=== PATIENT | male | born 1940 | race Caucasian/White ===

== ENCOUNTER 2016-11-17 07:57 | Inpatient (IN) | payer OTHER ==
[2016-11-17] VITALS (12 sets, daily range): BP systolic 74–151; BP diastolic 58–81
[~2016-11-17] VITALS: Ht 172.7 cm; Wt 56.6 kg
[~2016-11-17 07:57] MED LIST: ALBU8.5H IH; ASPI-1093 PO; ATOR20TA86 PO; D-ME118S13 PO; INSLAN SQ; INSNOV SQ; LOSA50TA37 PO; METF500T4 PO; METO100XL PO; MONT10TA21 PO; OMEP20 PO; PRED10 PO
[2016-11-17] MEDS ORDERED: ETOMIDATE 2 MG/ML 10 ML VIAL IVP ONE (08:15)
[2016-11-17] MEDS ORDERED: SUCCINYLCHOLINE CHLORIDE 20 MG/ML 10 ML VIAL IVP ONE (08:15)
[2016-11-17] MEDS ORDERED: CARV3 PO (08:17)
[2016-11-17] MEDS ORDERED: ADV100 IH (08:17)
[2016-11-17] MEDS ORDERED: BUME1TAB30 PO (08:17)
[2016-11-17] MEDS ORDERED: LISI-660 PO (08:17)
[2016-11-17] MEDS ORDERED: GABA-529 PO (08:17)
[2016-11-17] MEDS ORDERED: FAMO20 PO (08:17)
[2016-11-17] MEDS ORDERED: KDUR20 PO (08:17)
[2016-11-17 08:21] LABS: BASOPHILS # (AUTO) 0.04 K/uL (0.00-0.20); BASOPHILS % (AUTO) 0.3 % (0.0-2.0); EOSINOPHILS # (AUTO) 0.08 K/uL (0.00-0.70); EOSINOPHILS % (AUTO) 0.47 % (1.0-6.0); HEMATOCRIT 43.7 % (41-53); LYMPHOCYTES # (AUTO) 2.4 K/uL (1.0-4.8); LYMPHOCYTES % (AUTO) 14.1 % (22.0-44.0); MEAN CORPUSCULAR HEMOGLOBIN 29.1 pg (26.0-34.0); MEAN CORPUSCULAR HGB CONC 32.1 G/dL (31.0-37.0); MEAN CORPUSCULAR VOLUME 91 fL (80-100); MONOCYTES # (AUTO) 0.4 K/uL (0.1-1.0); MONOCYTES % (AUTO) 2.5 % (2.0-9.0); NEUTROPHILS # (AUTO) 13.8 K/uL (1.8-7.7); NEUTROPHILS % (AUTO) 82.6 % (40.0-70.0); PLATELET COUNT (AUTO) 487 K/uL (150-450); RED BLOOD CELL COUNT(AUTO) 4.82 MIL/uL (4.50-5.90); RED CELL DISTRIBUTION WIDTH 15.9 % (11.5-14.5); WHITE BLOOD COUNT (AUTO) 16.7 K/uL (4.5-11.0)
[2016-11-17 08:28] LABS: INR 1.1 (0.9-1.1); PROTHROMBIN TIME 11.3 SEC (9.4-11.6)
[2016-11-17 08:29] LABS: ANION GAP 27 mmol/L (8-16); CALCIUM, TOTAL 8.7 mg/dL (8.8-10.5); CARBON DIOXIDE 15 mmol/L (22-29); CHLORIDE 101 mmol/L (98-107); GLOMERULAR FILTR. RATE CALC 46 mL/min (>60); POTASSIUM 4.7 mmol/L (3.5-5.1); SODIUM SERUM 143 mmol/L (136-145); UREA NITROGEN, BLOOD 40 mg/dL (7-18)
[2016-11-17 08:36] LABS: ALANINE AMINOTRANSFERASE 56 U/L (12-78); ALBUMIN 2.7 g/dL (3.4-5.0); ASPARTATE AMINOTRANSFERASE 36 U/L (15-37); BILIRUBIN,TOTAL 0.4 mg/dL (0.1-1.0); CREATINE KINASE, TOTAL 73 U/L (39-308); TOTAL PROTEIN, SERUM 6.4 g/dL (6.4-8.2)
[2016-11-17 08:40] LABS: B-TYPE NATRIURETIC PEPTIDE 553 pg/mL (0-100)
[2016-11-17 08:41] LABS: ABG A-A DIFF O2 233.1 mmHg (10-20.0); ABG BASE EXCESS -14.6 mmol/L (-2.0-3.0); ABG HCO3 14.1 mmol/L (22.0-26.0); ABG PCO2 34 mmHg (35-45); TEMPERATURE, FAHRENHEIT, BG 94.9 FAHREN (96.0-98.6)
[2016-11-17 08:42] LABS: ALLEN TEST, BLOOD GAS POSITIVE
[2016-11-17 08:43] LABS: ADD UA MICROSCOPIC NO; APPEARANCE,URINE CLEAR (CLEAR); GLUCOSE, URINE (UA) NEGATIVE (NEGATIVE); KETONES,URINE NEGATIVE (NEGATIVE); LEUKOCYTE ESTERASE ,URINE NEGATIVE (NEGATIVE); OCCULT BLOOD,URINE NEGATIVE (NEGATIVE); PH,URINE 6.5 (5.0-8.0); PROTEIN,URINE NEGATIVE (NEGATIVE)
[2016-11-17] MEDS ORDERED: HEPARIN SODIUM 25000 UNITS/D5W 250 ML IV PRN (09:00)
[2016-11-17] MEDS ORDERED: HEPARIN SODIUM,PORCINE 5,000 UNITS/ML VIAL IVP ONE (09:00)
[2016-11-17] MEDS ORDERED: HEPARIN SODIUM,PORCINE 5,000 UNITS/ML VIAL IVP PRN ×2 (09:00)
[2016-11-17] MEDS: PROPOFOL 1000 MG/ISO-OSM 100 ML IV PRN ×3 (09:16→20:42)
[2016-11-17] MEDS ORDERED: TICA90TA PO (09:27)
[2016-11-17] MEDS ORDERED: ETOMIDATE 2 MG/ML 10 ML VIAL IV ONE (10:00)
[2016-11-17] MEDS ORDERED: SUCCINYLCHOLINE CHLORIDE 20 MG/ML 10 ML VIAL IV ONE (10:00)
[2016-11-17] MEDS ORDERED: SODIUM BICARBONATE [ADULT] 8.4% 50 MEQ/50 ML SYRINGE IVP ONE ×2 (10:52→11:00)
[2016-11-17] MEDS ORDERED: SODIUM BICARBONATE 100 MEQ in DEXTROSE 5%-WATER 1,000 ML IV SCH (11:00)
[2016-11-17] MEDS ORDERED: LIDOCAINE HCL/PF 1% 30 ML VIAL ONE ×2 (11:04→14:16)
[2016-11-17] MEDS ORDERED: HEPARIN SODIUM 1000 UNITS/NS 1,000 ML ONE ×2 (11:05→14:16)
[2016-11-17] MEDS ORDERED: SODIUM BICARBONATE 50 MEQ/50 ML VIAL ONE ×2 (11:05→14:16)
[2016-11-17] MEDS ORDERED: IOHEXOL 300 MG/ML 150 ML VIAL ONE ×2 (11:05→14:16)
[2016-11-17] MEDS ORDERED: VERAPAMIL HCL 2.5 MG/ML 2 ML VIAL ONE ×2 (11:06→14:15)
[2016-11-17] MEDS ORDERED: NITROGLYCERIN 50 MG/D5% WATER 250 ML ONE (11:06)
[2016-11-17] MEDS ORDERED: 0.9% SODIUM CHLORIDE 10 ML SYRINGE IVP ONE (11:07)
[2016-11-17] MEDS ORDERED: MIDAZOLAM HCL 2 MG/2 ML VIAL ONE ×2 (11:08→14:15)
[2016-11-17] MEDS ORDERED: FentaNYL CITRATE-PF 100 MCG/2 ML VIAL ONE ×3 (11:08→14:15)
[2016-11-17] MEDS ORDERED: SODIUM CHLORIDE 0.9% 500 ML IV ONE (11:56)
[2016-11-17] MEDS ORDERED: HEPARIN SODIUM 1000 UNITS/NS 1,000 ML IARTER ONE (12:00)
[2016-11-17] MEDS ORDERED: LIDOCAINE 1% 30 ML/SOD BICARB 8.4% 4 ML SQ ONE (12:00)
[2016-11-17] MEDS ORDERED: IOHEXOL 300 MG/ML 150 ML VIAL IARTER ONE (12:04)
[2016-11-17] MEDS: ASPIRIN 81 MG CHEWABLE TABLET PO SCH (15:53)
[2016-11-17] MEDS ORDERED: 0.9% SODIUM CHLORIDE 10 ML SYRINGE IVP PRN (17:00)
[2016-11-17] MEDS ORDERED: BARIUM SULFATE 0.1% SUSPENSION 450 ML BOTTLE ONE (17:33)
[2016-11-17 18:25] LABS: LACTIC ACID 0.9 mmol/L (0.4-2.0)
[2016-11-17 18:42] LABS: ANION GAP 5 mmol/L (8-16); CALCIUM, TOTAL 7.8 mg/dL (8.8-10.5); CARBON DIOXIDE 39 mmol/L (22-29); CHLORIDE 103 mmol/L (98-107); CREATININE 0.95 mg/dL (0.60-1.30); GLOMERULAR FILTR. RATE CALC > 60 mL/min (>60); SODIUM SERUM 147 mmol/L (136-145); UREA NITROGEN, BLOOD 35 mg/dL (7-18)
[2016-11-17] MEDS ORDERED: DEXTROSE 50%-WATER 25 GM/50 ML SYRINGE IVP ONE ×2 (18:51→21:58)
[2016-11-17 18:52] LABS: POTASSIUM 2.8 mmol/L (3.5-5.1)
[2016-11-17 19:25] LABS: ABG A-A DIFF O2 171.9 mmHg (10-20.0); ABG BASE EXCESS 4.2 mmol/L (-2.0-3.0); ABG HCO3 28.1 mmol/L (22.0-26.0); ABG OXYHEMOGLOBIN 97.9 % (94.0-100.0); ABG PCO2 38 mmHg (35-45); ABG PH 7.477 (7.35-7.450); TEMPERATURE, FAHRENHEIT, BG 97.5 FAHREN (96.0-98.6)
[2016-11-17 19:26] LABS: ALLEN TEST, BLOOD GAS Positive
[2016-11-17 19:37] LABS: PROCALCITONIN (PCT) 0.06 ng/mL (<0.50)
[2016-11-17] MEDS ORDERED: POTASSIUM CHL 10 MEQ/WATER 50 ML IV SCH (19:45)
[2016-11-17] MEDS ORDERED: SODIUM CHLORIDE 0.9% 250 ML IV ONE (19:54)
[2016-11-17] MEDS: POTASSIUM CHL 10 MEQ/WATER 50 ML IV SCH ×6 (20:05→23:37)
[2016-11-17] MEDS: POTASSIUM CHL 20 MEQ/D5-0.45NS 1,000 ML IV SCH (20:48)
[2016-11-17] MEDS: TICAGRELOR 90 MG TABLET PO SCH (21:09)
[2016-11-17] MEDS ORDERED: DEXTROSE 10%-WATER 1,000 ML IV SCH (22:15)
[2016-11-17] MEDS: DEXTROSE 50%-WATER 25 GM/50 ML SYRINGE IVP PRN (22:33)
[2016-11-18] VITALS (9 sets, daily range): BP systolic 109–168; BP diastolic 70–94
[2016-11-18 01:36] LABS: ANION GAP 5 mmol/L (8-16); CALCIUM, TOTAL 7.7 mg/dL (8.8-10.5); CARBON DIOXIDE 35 mmol/L (22-29); CHLORIDE 100 mmol/L (98-107); CREATININE 0.93 mg/dL (0.60-1.30); GLOMERULAR FILTR. RATE CALC > 60 mL/min (>60); POTASSIUM 3.6 mmol/L (3.5-5.1); SODIUM SERUM 140 mmol/L (136-145); UREA NITROGEN, BLOOD 25 mg/dL (7-18)
[2016-11-18 01:37] LABS: SALICYLATE < 2.8 mg/dL (2.8-20.0)
[2016-11-18] MEDS: DEXTROSE 50%-WATER 25 GM/50 ML SYRINGE IVP PRN (01:52)
[2016-11-18] MEDS: PROPOFOL 1000 MG/ISO-OSM 100 ML IV PRN ×2 (01:52→07:39)
[2016-11-18 01:55] LABS: OSMOLALITY 281 mOS/kg (270-310)
[2016-11-18] MEDS: CefTRIAXone 1 GM/DEXTROSE 50 ML IV SCH (02:52)
[2016-11-18 07:08] LABS: BASOPHILS % (AUTO) 0.2 % (0.0-2.0); EOSINOPHILS % (AUTO) 0.3 % (1.0-6.0); HEMATOCRIT 38.1 % (41-53); HEMOGLOBIN 12.3 g/dL (13.5-17.5); LYMPHOCYTES % (AUTO) 9.2 % (22.0-44.0); MEAN CORPUSCULAR HEMOGLOBIN 28.7 pg (26.0-34.0); MEAN CORPUSCULAR HGB CONC 32.3 G/dL (31.0-37.0); MEAN CORPUSCULAR VOLUME 89 fL (80-100); MONOCYTES # (AUTO) 1.1 K/uL (0.1-1.0); MONOCYTES % (AUTO) 4.9 % (2.0-9.0); NEUTROPHILS # (AUTO) 18.3 K/uL (1.8-7.7); PLATELET COUNT (AUTO) 340 K/uL (150-450); RED BLOOD CELL COUNT(AUTO) 4.28 MIL/uL (4.50-5.90); RED CELL DISTRIBUTION WIDTH 16.1 % (11.5-14.5); WHITE BLOOD COUNT (AUTO) 21.4 K/uL (4.5-11.0)
[2016-11-18 07:25] LABS: ANION GAP 8 mmol/L (8-16); CALCIUM, TOTAL 7.5 mg/dL (8.8-10.5); CARBON DIOXIDE 30 mmol/L (22-29); CHLORIDE 99 mmol/L (98-107); CREATININE 0.61 mg/dL (0.60-1.30); GLOMERULAR FILTR. RATE CALC > 60 mL/min (>60); POTASSIUM 3.1 mmol/L (3.5-5.1); SODIUM SERUM 137 mmol/L (136-145); UREA NITROGEN, BLOOD 17 mg/dL (7-18)
[2016-11-18 07:36] LABS: NEUTROPHILS % (AUTO) 85.4 % (40.0-70.0)
[2016-11-18] MEDS: TICAGRELOR 90 MG TABLET PO SCH ×2 (08:31→21:34)
[2016-11-18] MEDS: ASPIRIN 81 MG CHEWABLE TABLET PO SCH (08:31)
[2016-11-18] MEDS: POTASSIUM CHL 10 MEQ/WATER 50 ML IV SCH ×4 (09:14→12:46)
[2016-11-18] MEDS ORDERED: MAGNESIUM HYDROXIDE SUSPENSION 30 ML UDCUP PO PRN (09:15)
[2016-11-18] MEDS ORDERED: BISACODYL 10 MG RECTAL RECTAL SUPPOSITORY PR PRN (09:15)
[2016-11-18] MEDS ORDERED: ALBUTEROL SULFATE 2.5 MG/0.5 ML NEB SOLUTION NEB PRN (09:15)
[2016-11-18] MEDS ORDERED: ZOLPIDEM TARTRATE 5 MG TABLET PO PRN (09:15)
[2016-11-18] MEDS ORDERED: ONDANSETRON HCL 4 MG/2 ML VIAL IVP PRN (09:15)
[2016-11-18] MEDS ORDERED: ACETAMINOPHEN 325 MG TABLET PO PRN (09:15)
[2016-11-18] MEDS ORDERED: IPRATROPIUM BROMIDE 0.5 MG/2.5 ML NEB SOLUTION NEB PRN (09:15)
[2016-11-18] MEDS ORDERED: POTASSIUM CHLORIDE 10% 40 MEQ/30 ML LIQUID UDCUP NG ONE (09:30)
[2016-11-18] MEDS ORDERED: POTASSIUM CHL 20 MEQ/D5-0.45NS 1,000 ML IV SCH (09:30)
[2016-11-18] MEDS: POTASSIUM CHL 20 MEQ/D5-0.45NS 1,000 ML IV SCH ×2 (09:47→21:35)
[2016-11-18] MEDS: THIAMINE HCL 100 MG/ML 2ML VIAL IVP SCH (12:49)
[2016-11-18 16:16] LABS: ANION GAP 5 mmol/L (8-16); CALCIUM, TOTAL 6.9 mg/dL (8.8-10.5); CARBON DIOXIDE 27 mmol/L (22-29); CHLORIDE 99 mmol/L (98-107); CREATININE 0.69 mg/dL (0.60-1.30); GLOMERULAR FILTR. RATE CALC > 60 mL/min (>60); POTASSIUM 4.4 mmol/L (3.5-5.1); SODIUM SERUM 131 mmol/L (136-145); UREA NITROGEN, BLOOD 13 mg/dL (7-18)
[2016-11-18] MEDS: HEPARIN SODIUM,PORCINE 5,000 UNITS/ML VIAL SQ SCH (16:20)
[2016-11-18] MEDS: DOCUSATE SODIUM 100 MG CAPSULE PO SCH (21:34)
[2016-11-19] VITALS (11 sets, daily range): BP systolic 115–158; BP diastolic 64–104
[2016-11-19] MEDS: HEPARIN SODIUM,PORCINE 5,000 UNITS/ML VIAL SQ SCH ×4 (01:07→23:27)
[2016-11-19 01:29] LABS: GLUCOSE,POINT OF CARE 70 MG/DL (70-110)
[2016-11-19 01:35] LABS: GLUCOSE COMMENT 1 Doctor Notified; GLUCOSE,POINT OF CARE 14 MG/DL (70-110)
[2016-11-19 01:35] LABS: GLUCOSE,POINT OF CARE 122 MG/DL (70-110)
[2016-11-19 01:35] LABS: GLUCOSE,POINT OF CARE 105 MG/DL (70-110)
[2016-11-19 01:35] LABS: GLUCOSE,POINT OF CARE 74 MG/DL (70-110)
[2016-11-19 01:39] LABS: GLUCOSE,POINT OF CARE 70 MG/DL (70-110)
[2016-11-19 01:44] LABS: GLUCOSE,POINT OF CARE 160 MG/DL (70-110)
[2016-11-19 02:17] LABS: GLUCOSE,POINT OF CARE 185 MG/DL (70-110)
[2016-11-19] MEDS ORDERED: SODIUM CHLORIDE 0.9% 250 ML IV ONE (03:53)
[2016-11-19] MEDS: CefTRIAXone 1 GM/DEXTROSE 50 ML IV SCH (03:55)
[2016-11-19] MEDS: PROPOFOL 1000 MG/ISO-OSM 100 ML IV PRN ×2 (06:09→19:52)
[2016-11-19 06:45] LABS: EOSINOPHILS # (AUTO) 0.22 K/uL (0.00-0.70); EOSINOPHILS % (AUTO) 1.44 % (1.0-6.0); HEMATOCRIT 34.8 % (41-53); HEMOGLOBIN 11.5 g/dL (13.5-17.5); LYMPHOCYTES # (AUTO) 1.2 K/uL (1.0-4.8); LYMPHOCYTES % (AUTO) 7.9 % (22.0-44.0); MEAN CORPUSCULAR HEMOGLOBIN 30.1 pg (26.0-34.0); MEAN CORPUSCULAR VOLUME 91 fL (80-100); MONOCYTES # (AUTO) 0.6 K/uL (0.1-1.0); MONOCYTES % (AUTO) 4.1 % (2.0-9.0); PLATELET COUNT (AUTO) 276 K/uL (150-450); RED BLOOD CELL COUNT(AUTO) 3.82 MIL/uL (4.50-5.90); RED CELL DISTRIBUTION WIDTH 16.3 % (11.5-14.5); WHITE BLOOD COUNT (AUTO) 15.1 K/uL (4.5-11.0)
[2016-11-19 06:48] LABS: NEUTROPHILS % (AUTO) 86.6 % (40.0-70.0)
[2016-11-19 06:52] LABS: ANION GAP 8 mmol/L (8-16); CALCIUM, TOTAL 7.4 mg/dL (8.8-10.5); CARBON DIOXIDE 26 mmol/L (22-29); CHLORIDE 103 mmol/L (98-107); CREATININE 0.68 mg/dL (0.60-1.30); GLOMERULAR FILTR. RATE CALC > 60 mL/min (>60); POTASSIUM 4.3 mmol/L (3.5-5.1); SODIUM SERUM 137 mmol/L (136-145); UREA NITROGEN, BLOOD 12 mg/dL (7-18)
[2016-11-19 07:04] LABS: GLUCOSE,POINT OF CARE 216 MG/DL (70-110)
[2016-11-19] MEDS: TICAGRELOR 90 MG TABLET PO SCH ×2 (08:08→23:26)
[2016-11-19] MEDS: ASPIRIN 81 MG CHEWABLE TABLET PO SCH (08:08)
[2016-11-19] MEDS: DOCUSATE SODIUM 100 MG CAPSULE PO SCH ×2 (08:08→20:47)
[2016-11-19] MEDS: PANTOPRAZOLE SODIUM 40 MG/VIAL IVP SCH (08:08)
[2016-11-19] MEDS: THIAMINE HCL 100 MG/ML 2ML VIAL IVP SCH (08:09)
[2016-11-19] MEDS: POTASSIUM CHL 20 MEQ/D5-0.45NS 1,000 ML IV SCH (11:03)
[2016-11-19 14:54] LABS: GLUCOSE COMMENT 1 Doctor Notified; GLUCOSE,POINT OF CARE < 10 MG/DL (70-110)
[2016-11-19 15:03] LABS: GLUCOSE,POINT OF CARE 168 MG/DL (70-110)
[2016-11-19] MEDS: MethylPREDNISolone SOD SUCC 40 MG/ML VIAL IVP SCH ×2 (18:34→23:27)
[2016-11-19] MEDS: METOPROLOL TARTRATE 25 MG TABLET PO SCH (21:49)
[2016-11-20] VITALS (8 sets, daily range): BP systolic 98–150; BP diastolic 66–90
[2016-11-20] MEDS ORDERED: SODIUM CHLORIDE 0.9% 250 ML IV ONE (02:52)
[2016-11-20] MEDS: CefTRIAXone 1 GM/DEXTROSE 50 ML IV SCH (02:54)
[2016-11-20] MEDS: PROPOFOL 1000 MG/ISO-OSM 100 ML IV PRN ×2 (04:28→18:19)
[2016-11-20] MEDS: MethylPREDNISolone SOD SUCC 40 MG/ML VIAL IVP SCH ×4 (05:35→23:41)
[2016-11-20 06:27] LABS: ANION GAP 10 mmol/L (8-16); CARBON DIOXIDE 23 mmol/L (22-29); CHLORIDE 103 mmol/L (98-107); CREATININE 0.76 mg/dL (0.60-1.30); GLOMERULAR FILTR. RATE CALC > 60 mL/min (>60); PHOSPHORUS 3.4 mg/dL (2.5-4.9); POTASSIUM 4.5 mmol/L (3.5-5.1); SODIUM SERUM 136 mmol/L (136-145); UREA NITROGEN, BLOOD 16 mg/dL (7-18)
[2016-11-20] MEDS: PANTOPRAZOLE SODIUM 40 MG/VIAL IVP SCH (08:02)
[2016-11-20] MEDS: HEPARIN SODIUM,PORCINE 5,000 UNITS/ML VIAL SQ SCH ×3 (08:03→23:41)
[2016-11-20] MEDS: TICAGRELOR 90 MG TABLET PO SCH ×2 (08:03→20:20)
[2016-11-20] MEDS: ASPIRIN 81 MG CHEWABLE TABLET PO SCH (08:03)
[2016-11-20] MEDS: DOCUSATE SODIUM 100 MG CAPSULE PO SCH ×2 (08:03→20:20)
[2016-11-20] MEDS: METOPROLOL TARTRATE 25 MG TABLET PO SCH ×2 (08:03→20:20)
[2016-11-20] MEDS: THIAMINE HCL 100 MG/ML 2ML VIAL IVP SCH (08:04)
[2016-11-20] MEDS ORDERED: POTASSIUM CHLORIDE 10% 40 MEQ/30 ML LIQUID UDCUP NG SCH (09:00)
[2016-11-20 16:28] LABS: TEMPERATURE, FAHRENHEIT, BG 98.6 FAHREN (96.0-98.6)
[2016-11-20 16:34] LABS: ABG A-A DIFF O2 52.6 mmHg (10-20.0); ABG BASE EXCESS -2.5 mmol/L (-2.0-3.0); ABG HCO3 23.1 mmol/L (22.0-26.0); ABG OXYHEMOGLOBIN 97.5 % (94.0-100.0); ABG PCO2 31 mmHg (35-45); ABG PH 7.456 (7.35-7.450)
[2016-11-20 16:35] LABS: ALLEN TEST, BLOOD GAS Positive
[2016-11-20] MEDS ORDERED: DEXTROSE 5%-WATER 1,000 ML IV SCH (17:05)
[2016-11-20] MEDS ORDERED: DEXTROSE 50%-WATER 25 GM/50 ML SYRINGE IVP PRN (17:15)
[2016-11-20] MEDS: INSULIN REGULAR, HUMAN 100 UNITS in SODIUM CHLORIDE 0.9% 99 ML IV PRN ×6 (17:48→20:15)
[2016-11-20 18:57] LABS: GLUCOSE COMMENT 1 Received Meds; GLUCOSE,POINT OF CARE 329 MG/DL (70-110)
[2016-11-20 18:57] LABS: GLUCOSE,POINT OF CARE 284 MG/DL (70-110)
[2016-11-20 22:07] LABS: GLUCOSE COMMENT 1 Received Meds; GLUCOSE,POINT OF CARE 190 MG/DL (70-110)
[2016-11-20 22:07] LABS: GLUCOSE COMMENT 1 Received Meds; GLUCOSE,POINT OF CARE 277 MG/DL (70-110)
[2016-11-20 22:07] LABS: GLUCOSE COMMENT 1 Received Meds; GLUCOSE,POINT OF CARE 201 MG/DL (70-110)
[2016-11-20] MEDS ORDERED: PNEUMOCOCCAL VACCINE POLYVALENT 0.5 ML VIAL [PPSV23] IM ONE (23:00)
[2016-11-21] VITALS: BP 98/56
[2016-11-21] MEDS: CefTRIAXone 1 GM/DEXTROSE 50 ML IV SCH (02:32)
[2016-11-21 04:00] VITALS: BP 108/67
[2016-11-21] MEDS: MethylPREDNISolone SOD SUCC 40 MG/ML VIAL IVP SCH ×4 (05:10→23:40)
[2016-11-21 05:57] LABS: ANION GAP 6 mmol/L (8-16); CALCIUM, TOTAL 8.2 mg/dL (8.8-10.5); CARBON DIOXIDE 27 mmol/L (22-29); CHLORIDE 109 mmol/L (98-107); CREATININE 0.78 mg/dL (0.60-1.30); GLOMERULAR FILTR. RATE CALC > 60 mL/min (>60); PHOSPHORUS 2.9 mg/dL (2.5-4.9); POTASSIUM 4.7 mmol/L (3.5-5.1); SODIUM SERUM 142 mmol/L (136-145); UREA NITROGEN, BLOOD 27 mg/dL (7-18)
[2016-11-21] MEDS: PROPOFOL 1000 MG/ISO-OSM 100 ML IV PRN (06:57)
[2016-11-21 07:02] LABS: GLUCOSE COMMENT 1 Received Meds; GLUCOSE,POINT OF CARE 178 MG/DL (70-110)
[2016-11-21 07:02] LABS: GLUCOSE COMMENT 1 Received Meds; GLUCOSE,POINT OF CARE 184 MG/DL (70-110)
[2016-11-21 07:02] LABS: GLUCOSE COMMENT 1 Received Meds; GLUCOSE,POINT OF CARE 210 MG/DL (70-110)
[2016-11-21 07:02] LABS: GLUCOSE COMMENT 1 Received Meds; GLUCOSE,POINT OF CARE 221 MG/DL (70-110)
[2016-11-21 07:02] LABS: GLUCOSE COMMENT 1 Received Meds; GLUCOSE,POINT OF CARE 215 MG/DL (70-110)
[2016-11-21 07:02] LABS: GLUCOSE COMMENT 1 Received Meds; GLUCOSE,POINT OF CARE 196 MG/DL (70-110)
[2016-11-21 07:02] LABS: GLUCOSE COMMENT 1 Received Meds; GLUCOSE,POINT OF CARE 194 MG/DL (70-110)
[2016-11-21 07:02] LABS: GLUCOSE COMMENT 1 Received Meds; GLUCOSE,POINT OF CARE 189 MG/DL (70-110)
[2016-11-21 07:02] LABS: GLUCOSE COMMENT 1 Received Meds; GLUCOSE,POINT OF CARE 168 MG/DL (70-110)
[2016-11-21 08:00] VITALS: BP 138/78
[2016-11-21] MEDS: HEPARIN SODIUM,PORCINE 5,000 UNITS/ML VIAL SQ SCH ×3 (08:18→23:39)
[2016-11-21] MEDS: ASPIRIN 81 MG CHEWABLE TABLET PO SCH (08:18)
[2016-11-21] MEDS: THIAMINE HCL 100 MG/ML 2ML VIAL IVP SCH (08:18)
[2016-11-21] MEDS: PANTOPRAZOLE SODIUM 40 MG/VIAL IVP SCH (08:18)
[2016-11-21] MEDS: METOPROLOL TARTRATE 25 MG TABLET PO SCH ×2 (08:18→20:12)
[2016-11-21] MEDS: TICAGRELOR 90 MG TABLET PO SCH ×2 (08:18→20:12)
[2016-11-21] MEDS: DOCUSATE SODIUM 100 MG CAPSULE PO SCH ×2 (08:18→20:10)
[2016-11-21 09:57] LABS: ABG A-A DIFF O2 49.5 mmHg (10-20.0); ABG BASE EXCESS -0.6 mmol/L (-2.0-3.0); ABG HCO3 24.5 mmol/L (22.0-26.0); ABG OXYHEMOGLOBIN 98.1 % (94.0-100.0); ABG PCO2 33 mmHg (35-45); ABG PH 7.469 (7.35-7.450); ALLEN TEST, BLOOD GAS Positive; TEMPERATURE, FAHRENHEIT, BG 98.6 FAHREN (96.0-98.6)
[2016-11-21] MEDS: LISINOPRIL 5 MG TABLET PO SCH (10:27)
[2016-11-21 10:42] LABS: GLUCOSE COMMENT 1 Received Meds; GLUCOSE,POINT OF CARE 172 MG/DL (70-110)
[2016-11-21 10:42] LABS: GLUCOSE COMMENT 1 Received Meds; GLUCOSE,POINT OF CARE 178 MG/DL (70-110)
[2016-11-21 10:42] LABS: GLUCOSE COMMENT 1 Received Meds; GLUCOSE,POINT OF CARE 166 MG/DL (70-110)
[2016-11-21 12:00] VITALS: BP 134/71
[2016-11-21] MEDS: INSULIN REGULAR, HUMAN 100 UNITS in SODIUM CHLORIDE 0.9% 99 ML IV PRN ×2 (12:50)
[2016-11-21] MEDS ORDERED: INSULIN DETEMIR 100 UNITS/ML SQ ONE (14:45)
[2016-11-21] MEDS ORDERED: FentaNYL CITRATE PF 500 MCG in DEXTROSE 5%-WATER 90 ML IV PRN (15:04)
[2016-11-21 16:00] VITALS: BP 136/72
[2016-11-21 16:17] LABS: GLUCOSE,POINT OF CARE 202 MG/DL (70-110)
[2016-11-21 16:17] LABS: GLUCOSE COMMENT 1 Received Meds; GLUCOSE,POINT OF CARE 145 MG/DL (70-110)
[2016-11-21 16:17] LABS: GLUCOSE COMMENT 1 Received Meds; GLUCOSE,POINT OF CARE 188 MG/DL (70-110)
[2016-11-21 16:17] LABS: GLUCOSE COMMENT 1 Received Meds; GLUCOSE,POINT OF CARE 159 MG/DL (70-110)
[2016-11-21 16:17] LABS: GLUCOSE COMMENT 1 Received Meds; GLUCOSE,POINT OF CARE 158 MG/DL (70-110)
[2016-11-21] MEDS ORDERED: DEXTROSE 50%-WATER 25 GM/50 ML SYRINGE IVP PRN (17:45)
[2016-11-21 19:12] LABS: GLUCOSE COMMENT 1 Received Meds; GLUCOSE,POINT OF CARE 146 MG/DL (70-110)
[2016-11-21] MEDS: HALOPERIDOL LACTATE 5 MG/ML VIAL IVP PRN (19:14)
[2016-11-21 20:00] VITALS: BP 136/86
[2016-11-21] MEDS: INSULIN REGULAR, HUMAN 100 UNITS/ML SQ PRN (21:14)
[2016-11-22] VITALS: BP 113/76
[2016-11-22] MEDS ORDERED: SODIUM CHLORIDE 0.9% 250 ML IV ONE (00:01)
[2016-11-22] MEDS: INSULIN REGULAR, HUMAN 100 UNITS/ML SQ PRN ×6 (00:08→23:37)
[2016-11-22] MEDS: HALOPERIDOL LACTATE 5 MG/ML VIAL IVP PRN ×3 (01:47→20:34)
[2016-11-22] MEDS: CefTRIAXone 1 GM/DEXTROSE 50 ML IV SCH (02:27)
[2016-11-22 03:02] LABS: GLUCOSE COMMENT 1 Received Meds; GLUCOSE,POINT OF CARE 217 MG/DL (70-110)
[2016-11-22 03:02] LABS: GLUCOSE COMMENT 1 Received Meds; GLUCOSE,POINT OF CARE 195 MG/DL (70-110)
[2016-11-22 04:00] VITALS: BP 134/74
[2016-11-22] MEDS: MethylPREDNISolone SOD SUCC 40 MG/ML VIAL IVP SCH ×4 (05:22→23:26)
[2016-11-22 06:30] LABS: ANION GAP 9 mmol/L (8-16); CALCIUM, TOTAL 8.1 mg/dL (8.8-10.5); CARBON DIOXIDE 25 mmol/L (22-29); CHLORIDE 107 mmol/L (98-107); CREATININE 0.62 mg/dL (0.60-1.30); GLOMERULAR FILTR. RATE CALC > 60 mL/min (>60); PHOSPHORUS 2.8 mg/dL (2.5-4.9); POTASSIUM 4.3 mmol/L (3.5-5.1); SODIUM SERUM 141 mmol/L (136-145); UREA NITROGEN, BLOOD 23 mg/dL (7-18)
[2016-11-22 06:47] LABS: GLUCOSE COMMENT 1 Received Meds; GLUCOSE,POINT OF CARE 178 MG/DL (70-110)
[2016-11-22 08:00] VITALS: BP 140/74
[2016-11-22] MEDS: DOCUSATE SODIUM 100 MG CAPSULE PO SCH ×2 (09:00→20:35)
[2016-11-22 09:07] LABS: GLUCOSE COMMENT 1 Received Meds; GLUCOSE,POINT OF CARE 236 MG/DL (70-110)
[2016-11-22] MEDS: TICAGRELOR 90 MG TABLET PO SCH ×2 (09:10→20:34)
[2016-11-22] MEDS: LISINOPRIL 5 MG TABLET PO SCH (09:10)
[2016-11-22] MEDS: ASPIRIN 81 MG CHEWABLE TABLET PO SCH (09:10)
[2016-11-22] MEDS: THIAMINE HCL 100 MG/ML 2ML VIAL IVP SCH (09:11)
[2016-11-22] MEDS: METOPROLOL TARTRATE 25 MG TABLET PO SCH ×2 (09:11→20:34)
[2016-11-22] MEDS: PANTOPRAZOLE SODIUM 40 MG/VIAL IVP SCH (09:11)
[2016-11-22] MEDS: HEPARIN SODIUM,PORCINE 5,000 UNITS/ML VIAL SQ SCH ×3 (09:11→23:26)
[2016-11-22 12:00] VITALS: BP 128/71
[2016-11-22 12:46] LABS: GLUCOSE COMMENT 1 Received Meds; GLUCOSE,POINT OF CARE 138 MG/DL (70-110)
[2016-11-22 13:34] LABS: ABG A-A DIFF O2 70.6 mmHg (10-20.0); ABG BASE EXCESS 0.4 mmol/L (-2.0-3.0); ABG HCO3 25.3 mmol/L (22.0-26.0); ABG OXYHEMOGLOBIN 97.4 % (94.0-100.0); ABG PCO2 33 mmHg (35-45); ABG PH 7.483 (7.35-7.450); TEMPERATURE, FAHRENHEIT, BG 98.4 FAHREN (96.0-98.6)
[2016-11-22 13:36] LABS: ALLEN TEST, BLOOD GAS Positive
[2016-11-22] MEDS ORDERED: BUMETANIDE 0.25 MG/ML 4 ML VIAL IVP ONE (15:15)
[2016-11-22 16:00] VITALS: BP 152/87
[2016-11-22 16:06] LABS: ABG A-A DIFF O2 91.5 mmHg (10-20.0); ABG BASE EXCESS 0.9 mmol/L (-2.0-3.0); ABG HCO3 25.9 mmol/L (22.0-26.0); ABG OXYHEMOGLOBIN 97.4 % (94.0-100.0); ABG PCO2 31 mmHg (35-45); ABG PH 7.512 (7.35-7.450); TEMPERATURE, FAHRENHEIT, BG 98.4 FAHREN (96.0-98.6)
[2016-11-22 16:08] LABS: ALLEN TEST, BLOOD GAS Positive
[2016-11-22 20:00] VITALS: BP 149/86
[2016-11-22] MEDS: INSULIN DETEMIR 100 UNITS/ML SQ SCH (20:47)
[2016-11-23] VITALS: BP 150/85
[2016-11-23] MEDS: CefTRIAXone 1 GM/DEXTROSE 50 ML IV SCH (02:09)
[2016-11-23 03:07] LABS: GLUCOSE COMMENT 1 Received Meds; GLUCOSE,POINT OF CARE 102 MG/DL (70-110)
[2016-11-23 03:07] LABS: GLUCOSE COMMENT 1 Received Meds; GLUCOSE,POINT OF CARE 224 MG/DL (70-110)
[2016-11-23 03:07] LABS: GLUCOSE COMMENT 1 Received Meds; GLUCOSE,POINT OF CARE 243 MG/DL (70-110)
[2016-11-23 04:00] VITALS: BP 138/76
[2016-11-23] MEDS: INSULIN REGULAR, HUMAN 100 UNITS/ML SQ PRN ×3 (05:15→16:42)
[2016-11-23] MEDS: MethylPREDNISolone SOD SUCC 40 MG/ML VIAL IVP SCH ×3 (05:22→17:43)
[2016-11-23 06:02] LABS: GLUCOSE COMMENT 1 Received Meds; GLUCOSE,POINT OF CARE 155 MG/DL (70-110)
[2016-11-23 06:07] LABS: BASOPHILS % (AUTO) 0.1 % (0.0-2.0); EOSINOPHILS % (AUTO) 0 % (1.0-6.0); HEMOGLOBIN 11.3 g/dL (13.5-17.5); LYMPHOCYTES # (AUTO) 0.4 K/uL (1.0-4.8); LYMPHOCYTES % (AUTO) 4.2 % (22.0-44.0); MEAN CORPUSCULAR HEMOGLOBIN 29.1 pg (26.0-34.0); MEAN CORPUSCULAR HGB CONC 32.3 G/dL (31.0-37.0); MEAN CORPUSCULAR VOLUME 90 fL (80-100); MONOCYTES # (AUTO) 0.4 K/uL (0.1-1.0); MONOCYTES % (AUTO) 4.4 % (2.0-9.0); NEUTROPHILS # (AUTO) 7.9 K/uL (1.8-7.7); PLATELET COUNT (AUTO) 256 K/uL (150-450); RED BLOOD CELL COUNT(AUTO) 3.88 MIL/uL (4.50-5.90); RED CELL DISTRIBUTION WIDTH 15.5 % (11.5-14.5); WHITE BLOOD COUNT (AUTO) 8.6 K/uL (4.5-11.0)
[2016-11-23 06:09] LABS: ANION GAP 6 mmol/L (8-16); CALCIUM, TOTAL 8.2 mg/dL (8.8-10.5); CARBON DIOXIDE 29 mmol/L (22-29); CHLORIDE 105 mmol/L (98-107); CREATININE 0.67 mg/dL (0.60-1.30); GLOMERULAR FILTR. RATE CALC > 60 mL/min (>60); PHOSPHORUS 3.3 mg/dL (2.5-4.9); POTASSIUM 3.9 mmol/L (3.5-5.1); SODIUM SERUM 140 mmol/L (136-145); UREA NITROGEN, BLOOD 25 mg/dL (7-18)
[2016-11-23 07:35] LABS: NEUTROPHILS % (AUTO) 91.3 % (40.0-70.0)
[2016-11-23] MEDS: PANTOPRAZOLE SODIUM 40 MG/VIAL IVP SCH (09:02)
[2016-11-23] MEDS: TICAGRELOR 90 MG TABLET PO SCH ×2 (09:04→20:15)
[2016-11-23] MEDS: ASPIRIN 81 MG CHEWABLE TABLET PO SCH (09:04)
[2016-11-23] MEDS: METOPROLOL TARTRATE 25 MG TABLET PO SCH ×2 (09:05→20:14)
[2016-11-23] MEDS: LISINOPRIL 5 MG TABLET PO SCH (09:05)
[2016-11-23] MEDS: DOCUSATE SODIUM 100 MG CAPSULE PO SCH ×2 (09:05→20:14)
[2016-11-23] MEDS: THIAMINE HCL 100 MG/ML 2ML VIAL IVP SCH (09:06)
[2016-11-23] MEDS: HEPARIN SODIUM,PORCINE 5,000 UNITS/ML VIAL SQ SCH ×2 (09:08→16:36)
[2016-11-23 09:17] LABS: GLUCOSE,POINT OF CARE 102 MG/DL (70-110)
[2016-11-23 12:00] VITALS: BP 153/92
[2016-11-23 12:46] LABS: GLUCOSE,POINT OF CARE 125 MG/DL (70-110)
[2016-11-23 16:00] VITALS: BP 151/81
[2016-11-23 20:00] VITALS: BP 157/86
[2016-11-23] MEDS: INSULIN DETEMIR 100 UNITS/ML SQ SCH (20:17)
[2016-11-23 22:32] VITALS: BP 143/75
[2016-11-24] MEDS: HEPARIN SODIUM,PORCINE 5,000 UNITS/ML VIAL SQ SCH ×4 (00:41→23:54)
[2016-11-24] MEDS: MethylPREDNISolone SOD SUCC 40 MG/ML VIAL IVP SCH ×5 (00:41→23:54)
[2016-11-24] MEDS: INSULIN REGULAR, HUMAN 100 UNITS/ML SQ PRN ×5 (00:46→23:59)
[2016-11-24 01:07] LABS: GLUCOSE COMMENT 1 Received Meds; GLUCOSE,POINT OF CARE 176 MG/DL (70-110)
[2016-11-24] MEDS ORDERED: SODIUM CHLORIDE 0.9% 250 ML IV ONE (03:02)
[2016-11-24] MEDS: CefTRIAXone 1 GM/DEXTROSE 50 ML IV SCH (03:10)
[2016-11-24 06:16] VITALS: BP 151/66
[2016-11-24 07:00] VITALS: BP 151/83
[2016-11-24 07:21] LABS: GLUCOSE COMMENT 1 Received Meds; GLUCOSE,POINT OF CARE 169 MG/DL (70-110)
[2016-11-24 07:21] LABS: GLUCOSE COMMENT 1 Received Meds; GLUCOSE,POINT OF CARE 190 MG/DL (70-110)
[2016-11-24 07:27] LABS: GLUCOSE COMMENT 1 Received Meds; GLUCOSE,POINT OF CARE 176 MG/DL (70-110)
[2016-11-24] MEDS: TICAGRELOR 90 MG TABLET PO SCH ×2 (09:33→20:45)
[2016-11-24] MEDS: ASPIRIN 81 MG CHEWABLE TABLET PO SCH (09:33)
[2016-11-24] MEDS: METOPROLOL TARTRATE 25 MG TABLET PO SCH ×2 (09:33→20:45)
[2016-11-24] MEDS: LISINOPRIL 5 MG TABLET PO SCH (09:33)
[2016-11-24] MEDS: PANTOPRAZOLE SODIUM 40 MG/VIAL IVP SCH (09:33)
[2016-11-24] MEDS: DOCUSATE SODIUM 100 MG CAPSULE PO SCH ×2 (09:34→20:45)
[2016-11-24 11:01] VITALS: BP 137/77
[2016-11-24 15:31] VITALS: BP 136/71
[2016-11-24 19:22] LABS: GLUCOSE COMMENT 1 Received Meds; GLUCOSE,POINT OF CARE 149 MG/DL (70-110)
[2016-11-24 19:26] LABS: GLUCOSE,POINT OF CARE 239 MG/DL (70-110)
[2016-11-24 20:14] VITALS: BP 148/88
[2016-11-24 23:07] VITALS: BP 149/85
[2016-11-24] MEDS: INSULIN DETEMIR 100 UNITS/ML SQ SCH (23:57)
[2016-11-25] MEDS: CefTRIAXone 1 GM/DEXTROSE 50 ML IV SCH (02:20)
[2016-11-25 04:18] VITALS: BP 128/80
[2016-11-25] MEDS: MethylPREDNISolone SOD SUCC 40 MG/ML VIAL IVP SCH ×4 (06:35→23:33)
[2016-11-25] MEDS: INSULIN REGULAR, HUMAN 100 UNITS/ML SQ PRN ×4 (06:40→23:39)
[2016-11-25 06:52] LABS: GLUCOSE COMMENT 1 Received Meds; GLUCOSE,POINT OF CARE 303 MG/DL (70-110)
[2016-11-25 06:56] LABS: GLUCOSE COMMENT 1 Received Meds; GLUCOSE,POINT OF CARE 263 MG/DL (70-110)
[2016-11-25 07:09] VITALS: BP 115/59
[2016-11-25 07:39] LABS: ANION GAP 9 mmol/L (8-16); CALCIUM, TOTAL 8.3 mg/dL (8.8-10.5); CARBON DIOXIDE 25 mmol/L (22-29); CHLORIDE 106 mmol/L (98-107); CREATININE 0.75 mg/dL (0.60-1.30); GLOMERULAR FILTR. RATE CALC > 60 mL/min (>60); POTASSIUM 4.3 mmol/L (3.5-5.1); SODIUM SERUM 140 mmol/L (136-145); UREA NITROGEN, BLOOD 28 mg/dL (7-18)
[2016-11-25 07:45] LABS: B-TYPE NATRIURETIC PEPTIDE 629 pg/mL (0-100)
[2016-11-25] MEDS: PANTOPRAZOLE SODIUM 40 MG/VIAL IVP SCH (09:40)
[2016-11-25] MEDS: ASPIRIN 81 MG CHEWABLE TABLET PO SCH (09:41)
[2016-11-25] MEDS: TICAGRELOR 90 MG TABLET PO SCH ×2 (09:41→21:02)
[2016-11-25] MEDS: DOCUSATE SODIUM 100 MG CAPSULE PO SCH ×2 (09:43→21:02)
[2016-11-25] MEDS: HEPARIN SODIUM,PORCINE 5,000 UNITS/ML VIAL SQ SCH ×3 (09:44→23:33)
[2016-11-25] MEDS: METOPROLOL TARTRATE 25 MG TABLET PO SCH ×2 (09:44→21:02)
[2016-11-25] MEDS: LISINOPRIL 5 MG TABLET PO SCH (09:44)
[2016-11-25 13:51] VITALS: BP 122/62
[2016-11-25 14:12] LABS: CHOL/HDL RATIO 3.4 (4.2-7.3)
[2016-11-25 14:13] LABS: HEMOGLOBIN A1C 10.1 % (4.5-6.2)
[2016-11-25 14:28] LABS: GLUCOSE,POINT OF CARE 195 MG/DL (70-110)
[2016-11-25 15:35] VITALS: BP 132/66
[2016-11-25 19:16] VITALS: BP 141/78
[2016-11-25 23:11] VITALS: BP 142/78
[2016-11-25] MEDS: INSULIN DETEMIR 100 UNITS/ML SQ SCH (23:39)
[2016-11-26] MEDS: CefTRIAXone 1 GM/DEXTROSE 50 ML IV SCH (03:48)
[2016-11-26 04:19] VITALS: BP 118/70
[2016-11-26] MEDS: MethylPREDNISolone SOD SUCC 40 MG/ML VIAL IVP SCH ×4 (06:39→23:43)
[2016-11-26] MEDS: INSULIN REGULAR, HUMAN 100 UNITS/ML SQ PRN ×3 (06:42→18:00)
[2016-11-26 07:34] VITALS: BP 139/80
[2016-11-26] MEDS: ASPIRIN 81 MG CHEWABLE TABLET PO SCH (09:06)
[2016-11-26] MEDS: TICAGRELOR 90 MG TABLET PO SCH ×2 (09:06→21:02)
[2016-11-26] MEDS: PANTOPRAZOLE SODIUM 40 MG/VIAL IVP SCH (09:06)
[2016-11-26] MEDS: HEPARIN SODIUM,PORCINE 5,000 UNITS/ML VIAL SQ SCH ×3 (09:06→23:43)
[2016-11-26] MEDS: DOCUSATE SODIUM 100 MG CAPSULE PO SCH ×2 (09:06→21:02)
[2016-11-26] MEDS: METOPROLOL TARTRATE 25 MG TABLET PO SCH ×2 (09:07→21:02)
[2016-11-26] MEDS: LISINOPRIL 5 MG TABLET PO SCH (09:07)
[2016-11-26 09:32] LABS: GLUCOSE,POINT OF CARE 265 MG/DL (70-110)
[2016-11-26 09:37] LABS: GLUCOSE COMMENT 1 Received Meds; GLUCOSE,POINT OF CARE 316 MG/DL (70-110)
[2016-11-26 09:37] LABS: GLUCOSE COMMENT 1 Received Meds; GLUCOSE,POINT OF CARE 333 MG/DL (70-110)
[2016-11-26 10:52] VITALS: BP 109/58
[2016-11-26 16:33] VITALS: BP 126/65
[2016-11-26 19:17] VITALS: BP 150/89
[2016-11-26] MEDS: INSULIN DETEMIR 100 UNITS/ML SQ SCH (21:10)
[2016-11-26 23:18] VITALS: BP 132/74
[2016-11-27] MEDS: INSULIN REGULAR, HUMAN 100 UNITS/ML SQ PRN ×5 (01:07→23:49)
[2016-11-27] MEDS: CefTRIAXone 1 GM/DEXTROSE 50 ML IV SCH (02:53)
[2016-11-27 06:01] LABS: BASOPHILS # (AUTO) 0.02 K/uL (0.00-0.20); BASOPHILS % (AUTO) 0.2 % (0.0-2.0); EOSINOPHILS % (AUTO) 0.01 % (1.0-6.0); HEMATOCRIT 35.2 % (41-53); HEMOGLOBIN 11.5 g/dL (13.5-17.5); LYMPHOCYTES # (AUTO) 0.5 K/uL (1.0-4.8); LYMPHOCYTES % (AUTO) 4.6 % (22.0-44.0); MEAN CORPUSCULAR HEMOGLOBIN 29.6 pg (26.0-34.0); MEAN CORPUSCULAR HGB CONC 32.6 G/dL (31.0-37.0); MEAN CORPUSCULAR VOLUME 91 fL (80-100); MONOCYTES # (AUTO) 0.5 K/uL (0.1-1.0); MONOCYTES % (AUTO) 4.3 % (2.0-9.0); NEUTROPHILS # (AUTO) 9.9 K/uL (1.8-7.7); PLATELET COUNT (AUTO) 332 K/uL (150-450); RED BLOOD CELL COUNT(AUTO) 3.87 MIL/uL (4.50-5.90); RED CELL DISTRIBUTION WIDTH 16.5 % (11.5-14.5); WHITE BLOOD COUNT (AUTO) 10.9 K/uL (4.5-11.0)
[2016-11-27] MEDS: MethylPREDNISolone SOD SUCC 40 MG/ML VIAL IVP SCH ×4 (06:05→23:45)
[2016-11-27 06:49] LABS: ANION GAP 8 mmol/L (8-16); CALCIUM, TOTAL 8.4 mg/dL (8.8-10.5); CARBON DIOXIDE 27 mmol/L (22-29); CHLORIDE 108 mmol/L (98-107); CREATININE 0.71 mg/dL (0.60-1.30); GLOMERULAR FILTR. RATE CALC > 60 mL/min (>60); POTASSIUM 4.1 mmol/L (3.5-5.1); SODIUM SERUM 143 mmol/L (136-145); UREA NITROGEN, BLOOD 30 mg/dL (7-18)
[2016-11-27 07:49] VITALS: BP 114/62
[2016-11-27 08:02] LABS: GLUCOSE,POINT OF CARE 252 MG/DL (70-110)
[2016-11-27 08:03] LABS: GLUCOSE COMMENT 1 Received Meds; GLUCOSE,POINT OF CARE 300 MG/DL (70-110)
[2016-11-27 08:03] LABS: GLUCOSE COMMENT 1 Received Meds; GLUCOSE,POINT OF CARE 281 MG/DL (70-110)
[2016-11-27 08:03] LABS: GLUCOSE COMMENT 1 Received Meds; GLUCOSE,POINT OF CARE 315 MG/DL (70-110)
[2016-11-27] MEDS: HEPARIN SODIUM,PORCINE 5,000 UNITS/ML VIAL SQ SCH ×3 (09:44→23:46)
[2016-11-27] MEDS: PANTOPRAZOLE SODIUM 40 MG/VIAL IVP SCH (09:44)
[2016-11-27] MEDS: ASPIRIN 81 MG CHEWABLE TABLET PO SCH (09:45)
[2016-11-27] MEDS: TICAGRELOR 90 MG TABLET PO SCH ×2 (09:45→20:35)
[2016-11-27] MEDS: DOCUSATE SODIUM 100 MG CAPSULE PO SCH ×2 (09:45→20:35)
[2016-11-27] MEDS: METOPROLOL TARTRATE 25 MG TABLET PO SCH ×2 (09:48→20:35)
[2016-11-27 10:58] VITALS: BP 125/63
[2016-11-27] MEDS: LISINOPRIL 5 MG TABLET PO SCH (11:59)
[2016-11-27 15:47] VITALS: BP 119/79
[2016-11-27 20:34] VITALS: BP 121/64
[2016-11-27] MEDS: INSULIN DETEMIR 100 UNITS/ML SQ SCH (20:39)
[2016-11-28] VITALS (7 sets, daily range): BP systolic 109–139; BP diastolic 57–82
[2016-11-28] MEDS: CefTRIAXone 1 GM/DEXTROSE 50 ML IV SCH (02:45)
[2016-11-28] MEDS: MethylPREDNISolone SOD SUCC 40 MG/ML VIAL IVP SCH ×3 (05:42→17:33)
[2016-11-28] MEDS: INSULIN REGULAR, HUMAN 100 UNITS/ML SQ PRN ×3 (05:55→17:35)
[2016-11-28 06:32] LABS: EOSINOPHILS % (AUTO) 0.03 % (1.0-6.0); HEMATOCRIT 36.7 % (41-53); HEMOGLOBIN 11.9 g/dL (13.5-17.5); LYMPHOCYTES # (AUTO) 0.6 K/uL (1.0-4.8); LYMPHOCYTES % (AUTO) 4.9 % (22.0-44.0); MEAN CORPUSCULAR HEMOGLOBIN 29.7 pg (26.0-34.0); MEAN CORPUSCULAR HGB CONC 32.4 G/dL (31.0-37.0); MEAN CORPUSCULAR VOLUME 92 fL (80-100); MONOCYTES # (AUTO) 0.5 K/uL (0.1-1.0); MONOCYTES % (AUTO) 4.3 % (2.0-9.0); NEUTROPHILS # (AUTO) 11.5 K/uL (1.8-7.7); PLATELET COUNT (AUTO) 364 K/uL (150-450); RED CELL DISTRIBUTION WIDTH 16.4 % (11.5-14.5); WHITE BLOOD COUNT (AUTO) 12.7 K/uL (4.5-11.0)
[2016-11-28 06:52] LABS: NEUTROPHILS % (AUTO) 90.8 % (40.0-70.0)
[2016-11-28 07:05] LABS: ANION GAP 7 mmol/L (8-16); CALCIUM, TOTAL 8.5 mg/dL (8.8-10.5); CARBON DIOXIDE 27 mmol/L (22-29); CHLORIDE 109 mmol/L (98-107); GLOMERULAR FILTR. RATE CALC > 60 mL/min (>60); POTASSIUM 4.6 mmol/L (3.5-5.1); SODIUM SERUM 143 mmol/L (136-145); UREA NITROGEN, BLOOD 31 mg/dL (7-18)
[2016-11-28 07:53] LABS: RBC MORPHOLOGY COMMENT ABNORMAL RBC MORPH
[2016-11-28] MEDS: PANTOPRAZOLE SODIUM 40 MG/VIAL IVP SCH (09:04)
[2016-11-28] MEDS: HEPARIN SODIUM,PORCINE 5,000 UNITS/ML VIAL SQ SCH ×2 (09:04→15:56)
[2016-11-28] MEDS: TICAGRELOR 90 MG TABLET PO SCH (09:04)
[2016-11-28] MEDS: ASPIRIN 81 MG CHEWABLE TABLET PO SCH (09:04)
[2016-11-28] MEDS: DOCUSATE SODIUM 100 MG CAPSULE PO SCH ×2 (09:05→20:04)
[2016-11-28] MEDS: METOPROLOL TARTRATE 25 MG TABLET PO SCH ×2 (09:05→20:04)
[2016-11-28] MEDS: LISINOPRIL 5 MG TABLET PO SCH (09:05)
[2016-11-28 12:17] LABS: GLUCOSE COMMENT 1 Received Meds; GLUCOSE,POINT OF CARE 243 MG/DL (70-110)
[2016-11-28 12:18] LABS: GLUCOSE COMMENT 1 Received Meds; GLUCOSE,POINT OF CARE 276 MG/DL (70-110)
[2016-11-28] MEDS: INSULIN DETEMIR 100 UNITS/ML SQ SCH (20:05)
[2016-11-28 20:08] LABS: GLUCOSE,POINT OF CARE 279 MG/DL (70-110)
[2016-11-28 20:12] LABS: GLUCOSE COMMENT 1 Received Meds; GLUCOSE,POINT OF CARE 250 MG/DL (70-110)
[2016-11-28 20:23] LABS: GLUCOSE COMMENT 1 Received Meds; GLUCOSE,POINT OF CARE 283 MG/DL (70-110)
[2016-11-28 20:23] LABS: GLUCOSE COMMENT 1 Received Meds; GLUCOSE,POINT OF CARE 359 MG/DL (70-110)
[2016-11-29] MEDS: MethylPREDNISolone SOD SUCC 40 MG/ML VIAL IVP SCH ×4 (00:39→17:27)
[2016-11-29] MEDS: HEPARIN SODIUM,PORCINE 5,000 UNITS/ML VIAL SQ SCH ×3 (00:39→15:04)
[2016-11-29] MEDS: CefTRIAXone 1 GM/DEXTROSE 50 ML IV SCH (02:06)
[2016-11-29 06:29] LABS: BASOPHILS # (AUTO) 0.01 K/uL (0.00-0.20); BASOPHILS % (AUTO) 0.1 % (0.0-2.0); EOSINOPHILS % (AUTO) 0.01 % (1.0-6.0); HEMATOCRIT 36.6 % (41-53); HEMOGLOBIN 11.9 g/dL (13.5-17.5); LYMPHOCYTES # (AUTO) 0.5 K/uL (1.0-4.8); LYMPHOCYTES % (AUTO) 3.4 % (22.0-44.0); MEAN CORPUSCULAR HEMOGLOBIN 29.9 pg (26.0-34.0); MEAN CORPUSCULAR HGB CONC 32.6 G/dL (31.0-37.0); MEAN CORPUSCULAR VOLUME 92 fL (80-100); MONOCYTES # (AUTO) 0.5 K/uL (0.1-1.0); MONOCYTES % (AUTO) 3.7 % (2.0-9.0); NEUTROPHILS # (AUTO) 12.8 K/uL (1.8-7.7); PLATELET COUNT (AUTO) 359 K/uL (150-450); RED BLOOD CELL COUNT(AUTO) 3.98 MIL/uL (4.50-5.90); RED CELL DISTRIBUTION WIDTH 16.8 % (11.5-14.5); WHITE BLOOD COUNT (AUTO) 13.8 K/uL (4.5-11.0)
[2016-11-29 06:32] VITALS: BP 130/62
[2016-11-29 06:42] LABS: ANION GAP 7 mmol/L (8-16); CALCIUM, TOTAL 8.3 mg/dL (8.8-10.5); CARBON DIOXIDE 29 mmol/L (22-29); CHLORIDE 108 mmol/L (98-107); CREATININE 0.63 mg/dL (0.60-1.30); GLOMERULAR FILTR. RATE CALC > 60 mL/min (>60); POTASSIUM 4.1 mmol/L (3.5-5.1); SODIUM SERUM 144 mmol/L (136-145); UREA NITROGEN, BLOOD 30 mg/dL (7-18)
[2016-11-29 06:46] LABS: NEUTROPHILS % (AUTO) 92.9 % (40.0-70.0)
[2016-11-29 07:17] VITALS: BP 128/66
[2016-11-29 08:42] LABS: GLUCOSE,POINT OF CARE 115 MG/DL (70-110)
[2016-11-29] MEDS: LISINOPRIL 5 MG TABLET PO SCH (09:23)
[2016-11-29] MEDS: DOCUSATE SODIUM 100 MG CAPSULE PO SCH (09:23)
[2016-11-29] MEDS: ASPIRIN 81 MG CHEWABLE TABLET PO SCH (09:23)
[2016-11-29] MEDS: PANTOPRAZOLE SODIUM 40 MG/VIAL IVP SCH (09:23)
[2016-11-29] MEDS: METOPROLOL TARTRATE 25 MG TABLET PO SCH (09:23)
[2016-11-29] MEDS: INSULIN REGULAR, HUMAN 100 UNITS/ML SQ PRN ×2 (11:53→18:11)
[2016-11-29 11:58] VITALS: BP 118/78
[2016-11-29] MEDS ORDERED: HALOPERIDOL LACTATE 5 MG/ML VIAL IM PRN (14:30)
[2016-11-29] MEDS ORDERED: TICAGRELOR 90 MG TABLET NG SCH (16:15)
[2016-11-29 16:38] VITALS: BP 132/66
[2016-11-29] MEDS ORDERED: CEFX2I IV (20:59)
[2016-11-29] MEDS ORDERED: ACET-784 PO (21:04)
[2016-11-29] MEDS ORDERED: BISA-72 PR (21:06)
[2016-11-29] MEDS ORDERED: PANT40TA PO (21:08)
[2016-11-29] MEDS ORDERED: INSREG SQ (21:12)
[2016-11-29] MEDS ORDERED: IPRNEB IH (21:14)
[2016-11-29] MEDS ORDERED: METO25 PO (21:16)
[2016-11-30 09:38] LABS: GLUCOSE COMMENT 1 Received Meds; GLUCOSE,POINT OF CARE 243 MG/DL (70-110)
[2016-11-30 09:38] LABS: GLUCOSE COMMENT 1 Received Meds; GLUCOSE,POINT OF CARE 263 MG/DL (70-110)
[2016-12-01 09:27] LABS: GLUCOSE COMMENT 1 Received Meds; GLUCOSE,POINT OF CARE 195 MG/DL (70-110)
[2016-12-01 09:28] LABS: GLUCOSE,POINT OF CARE 201 MG/DL (70-110)
== END 2016-11-29 20:00 | DRG 870 ==
LOC: EMS 07:59 → ICU 11:15 → 5N 11-23 22:00
PROVIDERS: ADMIT Hospitalist; ATTEND Internal Medicine
PROC: 4A023N7 Measurement of Cardiac Sampling and Pressure, Left Heart, Percutaneous Approach (ICD-10-PCS; principal; 2016-11-17)
PROC: 0BH17EZ Insertion of Endotracheal Airway into Trachea, Via Natural or Artificial Opening (ICD-10-PCS; 2016-11-17)
PROC: B2111ZZ Fluoroscopy of Multiple Coronary Arteries using Low Osmolar Contrast (ICD-10-PCS; 2016-11-17)
PROC: B41G1ZZ Fluoroscopy of Left Lower Extremity Arteries using Low Osmolar Contrast (ICD-10-PCS; 2016-11-17)
PROC: 06HN33Z Insertion of Infusion Device into Left Femoral Vein, Percutaneous Approach (ICD-10-PCS; 2016-11-17)
PROC: B51C1ZA Fluoroscopy of Left Lower Extremity Veins using Low Osmolar Contrast, Guidance (ICD-10-PCS; 2016-11-17)
PROC: 5A1955Z Respiratory Ventilation, Greater than 96 Consecutive Hours (ICD-10-PCS; 2016-11-17)
DX: A41.9 Sepsis, unspecified organism (principal); J96.00 Acute respiratory failure, unspecified whether with hypoxia or hypercapnia; I21.4 Non-ST elevation (NSTEMI) myocardial infarction; E43 Unspecified severe protein-calorie malnutrition; J18.9 Pneumonia, unspecified organism; N17.9 Acute kidney failure, unspecified; I50.22 Chronic systolic (congestive) heart failure; E87.2 Acidosis; E87.4 Mixed disorder of acid-base balance; I25.10 Atherosclerotic heart disease of native coronary artery without angina pectoris; J84.10 Pulmonary fibrosis, unspecified; I25.2 Old myocardial infarction; I11.0 Hypertensive heart disease with heart failure; E11.649 Type 2 diabetes mellitus with hypoglycemia without coma; E78.5 Hyperlipidemia, unspecified; I25.5 Ischemic cardiomyopathy; H54.41 Blindness, right eye, normal vision left eye; I48.91 Unspecified atrial fibrillation; N32.9 Bladder disorder, unspecified; Z87.891 Personal history of nicotine dependence; T50.2X5A Adverse effect of carbonic-anhydrase inhibitors, benzothiadiazides and other diuretics, initial encounter; T46.4X5A Adverse effect of angiotensin-converting-enzyme inhibitors, initial encounter; R13.10 Dysphagia, unspecified; Z68.21 Body mass index [BMI] 21.0-21.9, adult; E87.6 Hypokalemia; E11.65 Type 2 diabetes mellitus with hyperglycemia; Z78.1 Physical restraint status; Z79.82 Long term (current) use of aspirin; Z79.4 Long term (current) use of insulin; Y92.89 Other specified places as the place of occurrence of the external cause; Z79.899 Other long term (current) drug therapy; Z95.5 Presence of coronary angioplasty implant and graft; Z79.51 Long term (current) use of inhaled steroids; Z86.73 Personal history of transient ischemic attack (TIA), and cerebral infarction without residual deficits; Z53.29 Procedure and treatment not carried out because of patient's decision for other reasons; Y93.89 Activity, other specified; Y99.8 Other external cause status; R41.82 Altered mental status, unspecified
CPT/HCPCS: 31500; 51702; 70450; 70544; 70551; 71250; 72192; 74150; 80320; 82436; 82570; 82607; 82693; 82746; 82805; 82962; 83036; 83605; 83735; 83930; 84100; 84133; 84145; 84156; 84300; 84443; 87040; 87070; 87081; 87086; 87147; 87205; 90471; 92526; 92610; 93005; 93306; 93460; 93880; 94002; 94003; 97163; 97530; 99291; C9113; G0480; J0330; J0696; J1630; J1644; J1815; J2250; J2405; J2704; J2920; J3010; J3411; J3480; J3490; J7050; J7060; Q9967

== ENCOUNTER 2016-11-30 13:27 | Emergency (ER) | payer OTHER ==
[~2016-11-30] VITALS: Ht 172.7 cm; Wt 56.8 kg
[~2016-11-30 13:27] MED LIST changes: +ACET-784 PO; +ADV100 IH; +BISA-72 PR; +BUME1TAB30 PO; +CARV3 PO; +CEFX2I IV; +FAMO20 PO; +GABA-529 PO; +INSREG SQ; +IPRNEB IH; +KDUR20 PO; +LISI-660 PO; +METO25 PO; +PANT40TA PO; +TICA90TA PO
[2016-11-30 13:56] LABS: GLUCOSE,POINT OF CARE 191 MG/DL (70-110)
[2016-11-30 19:54] VITALS: BP 112/66
== END 2016-11-30 20:28 | disposition home or self-care (01) ==
LOC: EMS 13:29
DX: R13.10 Dysphagia, unspecified (principal); I11.0 Hypertensive heart disease with heart failure; I50.9 Heart failure, unspecified; I25.2 Old myocardial infarction; I25.10 Atherosclerotic heart disease of native coronary artery without angina pectoris; E11.9 Type 2 diabetes mellitus without complications; F17.200 Nicotine dependence, unspecified, uncomplicated; Z43.1 Encounter for attention to gastrostomy; Z86.73 Personal history of transient ischemic attack (TIA), and cerebral infarction without residual deficits; Z79.82 Long term (current) use of aspirin; Z79.4 Long term (current) use of insulin
CPT/HCPCS: 43753; 74000; 82962; 99284

== ENCOUNTER 2016-12-12 07:59 | Emergency (ER) | payer OTHER ==
[~2016-12-12] VITALS: Ht 167.6 cm; Wt 68.0 kg
[~2016-12-12 07:59] MED LIST changes: -ADV100 IH; -ALBU8.5H IH; -ATOR20TA86 PO; -BUME1TAB30 PO; -CARV3 PO; -D-ME118S13 PO; -FAMO20 PO; -GABA-529 PO; -INSNOV SQ; -KDUR20 PO; -LOSA50TA37 PO; -METF500T4 PO; -METO100XL PO; -MONT10TA21 PO; -OMEP20 PO
[2016-12-12] MEDS ORDERED: GABA-529 PO ×2 (08:16→08:20)
[2016-12-12] MEDS ORDERED: INSU100V12 SQ (08:16)
[2016-12-12 08:52] LABS: GLUCOSE,POINT OF CARE 150 MG/DL (70-110)
[2016-12-12 09:47] LABS: BASOPHILS # (AUTO) 0.04 K/uL (0.00-0.20); BASOPHILS % (AUTO) 0.4 % (0.0-2.0); EOSINOPHILS # (AUTO) 0.14 K/uL (0.00-0.70); EOSINOPHILS % (AUTO) 1.31 % (1.0-6.0); HEMATOCRIT 38.9 % (41-53); HEMOGLOBIN 12.6 g/dL (13.5-17.5); LYMPHOCYTES # (AUTO) 2.9 K/uL (1.0-4.8); LYMPHOCYTES % (AUTO) 28.5 % (22.0-44.0); MEAN CORPUSCULAR HEMOGLOBIN 29.9 pg (26.0-34.0); MEAN CORPUSCULAR HGB CONC 32.5 G/dL (31.0-37.0); MEAN CORPUSCULAR VOLUME 92 fL (80-100); MONOCYTES # (AUTO) 0.8 K/uL (0.1-1.0); MONOCYTES % (AUTO) 7.4 % (2.0-9.0); NEUTROPHILS # (AUTO) 6.4 K/uL (1.8-7.7); NEUTROPHILS % (AUTO) 62.4 % (40.0-70.0); PLATELET COUNT (AUTO) 439 K/uL (150-450); RED BLOOD CELL COUNT(AUTO) 4.23 MIL/uL (4.50-5.90); RED CELL DISTRIBUTION WIDTH 16.6 % (11.5-14.5); WHITE BLOOD COUNT (AUTO) 10.3 K/uL (4.5-11.0)
[2016-12-12 09:53] LABS: ANION GAP 8 mmol/L (8-16); CALCIUM, TOTAL 8.7 mg/dL (8.8-10.5); CARBON DIOXIDE 28 mmol/L (22-29); CHLORIDE 101 mmol/L (98-107); CREATININE 0.72 mg/dL (0.60-1.30); GLOMERULAR FILTR. RATE CALC > 60 mL/min (>60); POTASSIUM 3.9 mmol/L (3.5-5.1); SODIUM SERUM 137 mmol/L (136-145); UREA NITROGEN, BLOOD 13 mg/dL (7-18)
[2016-12-12 09:59] LABS: ALANINE AMINOTRANSFERASE 25 U/L (12-78); ASPARTATE AMINOTRANSFERASE 27 U/L (15-37); BILIRUBIN,TOTAL 0.3 mg/dL (0.1-1.0)
[2016-12-12] MEDS ORDERED: LORazepam 2 MG/ML VIAL IVP ONE (10:00)
[2016-12-12 10:20] LABS: PROTHROMBIN TIME 10.8 SEC (9.4-11.6)
[2016-12-12 12:00] VITALS: BP 98/62
== END 2016-12-12 12:43 | disposition home or self-care (01) ==
LOC: EMS 08:01
DX: Z46.59 Encounter for fitting and adjustment of other gastrointestinal appliance and device (principal); I25.10 Atherosclerotic heart disease of native coronary artery without angina pectoris; I50.9 Heart failure, unspecified; E11.9 Type 2 diabetes mellitus without complications; I10 Essential (primary) hypertension; I25.2 Old myocardial infarction; Z79.4 Long term (current) use of insulin
CPT/HCPCS: 36415; 43753; 71010; 80053; 82962; 85025; 85610; 85730; 96374; 99285; J2060

== ENCOUNTER 2016-12-15 12:00 | Inpatient (IN) | payer OTHER ==
[~2016-12-15] VITALS: Ht 172.7 cm; Wt 54.0 kg
[~2016-12-15 12:00] MED LIST changes: +GABA-529 PO; +INSU100V12 SQ
[2016-12-15 12:34] LABS: GLUCOSE,POINT OF CARE 276 MG/DL (70-110)
[2016-12-15] MEDS ORDERED: SODIUM CHLORIDE 0.9% 1,000 ML IV ONE ×3 (13:00→15:45)
[2016-12-15] MEDS ORDERED: ACETAMINOPHEN 1000 MG/ISO-OSM 100 ML IV ONE (13:00)
[2016-12-15 13:19] LABS: BASOPHILS # (AUTO) 0.04 K/uL (0.00-0.20); BASOPHILS % (AUTO) 0.4 % (0.0-2.0); EOSINOPHILS % (AUTO) 0 % (1.0-6.0); HEMATOCRIT 36.4 % (41-53); HEMOGLOBIN 11.9 g/dL (13.5-17.5); LYMPHOCYTES # (AUTO) 0.5 K/uL (1.0-4.8); LYMPHOCYTES % (AUTO) 5.7 % (22.0-44.0); MEAN CORPUSCULAR HEMOGLOBIN 29.9 pg (26.0-34.0); MEAN CORPUSCULAR HGB CONC 32.7 G/dL (31.0-37.0); MEAN CORPUSCULAR VOLUME 91 fL (80-100); MONOCYTES # (AUTO) 0.3 K/uL (0.1-1.0); MONOCYTES % (AUTO) 2.7 % (2.0-9.0); NEUTROPHILS # (AUTO) 8.7 K/uL (1.8-7.7); PLATELET COUNT (AUTO) 559 K/uL (150-450); RED BLOOD CELL COUNT(AUTO) 3.98 MIL/uL (4.50-5.90); RED CELL DISTRIBUTION WIDTH 16.1 % (11.5-14.5); WHITE BLOOD COUNT (AUTO) 9.5 K/uL (4.5-11.0)
[2016-12-15 13:23] LABS: NEUTROPHILS % (AUTO) 91.2 % (40.0-70.0)
[2016-12-15 13:33] LABS: ANION GAP 9 mmol/L (8-16); CARBON DIOXIDE 26 mmol/L (22-29); CHLORIDE 96 mmol/L (98-107); CREATININE 1.14 mg/dL (0.60-1.30); GLOMERULAR FILTR. RATE CALC > 60 mL/min (>60); POTASSIUM 4.8 mmol/L (3.5-5.1); SODIUM SERUM 131 mmol/L (136-145); UREA NITROGEN, BLOOD 23 mg/dL (7-18)
[2016-12-15 13:38] LABS: ALANINE AMINOTRANSFERASE 24 U/L (12-78); ASPARTATE AMINOTRANSFERASE 28 U/L (15-37); BILIRUBIN,TOTAL 0.5 mg/dL (0.1-1.0); TOTAL PROTEIN, SERUM 7.3 g/dL (6.4-8.2)
[2016-12-15 14:08] LABS: PROCALCITONIN (PCT) 0.67 ng/mL (<0.50)
[2016-12-15 14:37] LABS: APPEARANCE,URINE TURBID (CLEAR); GLUCOSE, URINE (UA) 100 mg/dL (NEGATIVE); KETONES,URINE NEGATIVE (NEGATIVE); LEUKOCYTE ESTERASE ,URINE LARGE (NEGATIVE); OCCULT BLOOD,URINE MODERATE (NEGATIVE); PH,URINE 5.5 (5.0-8.0); PROTEIN,URINE POS 1+ (NEGATIVE)
[2016-12-15 14:47] LABS: WBC,URINE 51-100 /HPF (0-5)
[2016-12-15 15:15] LABS: REFLEX LACTIC ACID? YES YES
[2016-12-15] MEDS ORDERED: CefTRIAXone 1 GM/DEXTROSE 50 ML IV ONE (15:15)
[2016-12-15] MEDS ORDERED: ONDANSETRON HCL 4 MG/2 ML VIAL IVP PRN ×2 (15:45→19:15)
[2016-12-15 17:16] VITALS: BP 108/54
[2016-12-15] MEDS ORDERED: BISACODYL 10 MG RECTAL RECTAL SUPPOSITORY PR PRN (19:15)
[2016-12-15] MEDS ORDERED: IPRATROPIUM BROMIDE 0.5 MG/2.5 ML NEB SOLUTION NEB PRN ×2 (19:15)
[2016-12-15] MEDS ORDERED: MORPHINE SULFATE 2 MG/ML SYRINGE IVP PRN (19:15)
[2016-12-15] MEDS ORDERED: ZOLPIDEM TARTRATE 5 MG TABLET PO PRN (19:15)
[2016-12-15] MEDS ORDERED: HYDROCODONE/ACETAMINOPHEN 5-325 MG TABLET PO PRN (19:15)
[2016-12-15] MEDS ORDERED: ALBUTEROL SULFATE 2.5 MG/0.5 ML NEB SOLUTION NEB PRN (19:15)
[2016-12-15] MEDS ORDERED: MAGNESIUM HYDROXIDE SUSPENSION 30 ML UDCUP PO PRN (19:15)
[2016-12-15] MEDS ORDERED: ACETAMINOPHEN 325 MG TABLET PO PRN (19:15)
[2016-12-15 19:40] VITALS: BP 94/59
[2016-12-15] MEDS ORDERED: VANCOMYCIN HCL 1 GM/D5% WATER 200 ML IV ONE (20:30)
[2016-12-15] MEDS: PIPERACILLIN/TAZO 3.375 GM/D5W 50 ML IV SCH (20:37)
[2016-12-15] MEDS: INSULIN DETEMIR 100 UNITS/ML SQ SCH (21:00)
[2016-12-15] MEDS ORDERED: GABAPENTIN 100 MG CAPSULE PO SCH ×2 (21:00)
[2016-12-15] MEDS ORDERED: INSULIN DETEMIR 100 UNITS/ML SQ SCH (21:00)
[2016-12-15] MEDS: TICAGRELOR 90 MG TABLET PO SCH (21:23)
[2016-12-15] MEDS: DOCUSATE SODIUM 100 MG CAPSULE PO SCH (21:23)
[2016-12-15] MEDS: GABAPENTIN 300 MG CAPSULE NG SCH (21:24)
[2016-12-15 23:50] VITALS: BP 124/60
[2016-12-16] MEDS: HEPARIN SODIUM,PORCINE 5,000 UNITS/ML VIAL SQ SCH ×4 (00:17→23:34)
[2016-12-16] MEDS: PIPERACILLIN/TAZO 3.375 GM/D5W 50 ML IV SCH ×4 (02:37→20:01)
[2016-12-16 04:23] VITALS: BP 112/59
[2016-12-16 07:07] VITALS: BP 107/69
[2016-12-16 07:17] LABS: ANION GAP 3 mmol/L (8-16); CALCIUM, TOTAL 7.7 mg/dL (8.8-10.5); CARBON DIOXIDE 28 mmol/L (22-29); CHLORIDE 106 mmol/L (98-107); SODIUM SERUM 137 mmol/L (136-145); UREA NITROGEN, BLOOD 15 mg/dL (7-18)
[2016-12-16 08:31] LABS: CREATININE 0.66 mg/dL (0.60-1.30); GLOMERULAR FILTR. RATE CALC > 60 mL/min (>60)
[2016-12-16] MEDS: GABAPENTIN 300 MG CAPSULE NG SCH ×4 (09:15→21:12)
[2016-12-16] MEDS: DOCUSATE SODIUM 100 MG CAPSULE PO SCH ×2 (09:15→21:13)
[2016-12-16] MEDS: PANTOPRAZOLE SODIUM 40 MG/VIAL IVP SCH (09:16)
[2016-12-16] MEDS: ASPIRIN 81 MG EC TABLET PO SCH (09:16)
[2016-12-16] MEDS: TICAGRELOR 90 MG TABLET PO SCH ×2 (09:58→21:13)
[2016-12-16] MEDS: VANCOMYCIN HCL 500 MG in DEXTROSE 5%-WATER 100 ML IV SCH ×2 (09:58→21:21)
[2016-12-16] MEDS ORDERED: SODIUM CHLORIDE 0.9% 250 ML IV ONE (10:05)
[2016-12-16 12:17] VITALS: BP 103/53
[2016-12-16 15:09] VITALS: BP 112/57
[2016-12-16] MEDS ORDERED: DEXTROSE 50%-WATER 25 GM/50 ML SYRINGE IVP PRN (17:45)
[2016-12-16] MEDS ORDERED: INSULIN REGULAR, HUMAN 100 UNITS/ML SQ SCH (18:00)
[2016-12-16] MEDS: INSULIN REGULAR, HUMAN 100 UNITS/ML SQ PRN (18:01)
[2016-12-16 19:20] VITALS: BP 110/58
[2016-12-16 20:22] LABS: GLUCOSE,POINT OF CARE 159 MG/DL (70-110)
[2016-12-16 20:22] LABS: GLUCOSE,POINT OF CARE 116 MG/DL (70-110)
[2016-12-16 20:22] LABS: GLUCOSE,POINT OF CARE 79 MG/DL (70-110)
[2016-12-16 20:26] LABS: GLUCOSE,POINT OF CARE 105 MG/DL (70-110)
[2016-12-16 20:52] LABS: GLUCOSE,POINT OF CARE 161 MG/DL (70-110)
[2016-12-16] MEDS: INSULIN DETEMIR 100 UNITS/ML SQ SCH (21:35)
[2016-12-16 23:25] VITALS: BP 114/57
[2016-12-17] VITALS (7 sets, daily range): BP systolic 101–138; BP diastolic 53–77
[2016-12-17] MEDS: PIPERACILLIN/TAZO 3.375 GM/D5W 50 ML IV SCH ×3 (01:31→13:13)
[2016-12-17 05:12] LABS: GLUCOSE COMMENT 1 Received Meds; GLUCOSE,POINT OF CARE 176 MG/DL (70-110)
[2016-12-17 06:38] LABS: BASOPHILS % (AUTO) 0.5 % (0.0-2.0); EOSINOPHILS % (AUTO) 2.4 % (1.0-6.0); HEMATOCRIT 26.3 % (41-53); HEMOGLOBIN 8.3 g/dL (13.5-17.5); LYMPHOCYTES # (AUTO) 1.9 K/uL (1.0-4.8); LYMPHOCYTES % (AUTO) 21.9 % (22.0-44.0); MEAN CORPUSCULAR HEMOGLOBIN 28.9 pg (26.0-34.0); MEAN CORPUSCULAR HGB CONC 31.6 G/dL (31.0-37.0); MEAN CORPUSCULAR VOLUME 92 fL (80-100); MONOCYTES # (AUTO) 0.7 K/uL (0.1-1.0); MONOCYTES % (AUTO) 7.9 % (2.0-9.0); NEUTROPHILS # (AUTO) 5.8 K/uL (1.8-7.7); NEUTROPHILS % (AUTO) 67.3 % (40.0-70.0); PLATELET COUNT (AUTO) 495 K/uL (150-450); RED BLOOD CELL COUNT(AUTO) 2.88 MIL/uL (4.50-5.90); WHITE BLOOD COUNT (AUTO) 8.6 K/uL (4.5-11.0)
[2016-12-17 07:08] LABS: ALANINE AMINOTRANSFERASE 13 U/L (12-78); ALBUMIN 1.4 g/dL (3.4-5.0); ANION GAP 4 mmol/L (8-16); ASPARTATE AMINOTRANSFERASE 18 U/L (15-37); BILIRUBIN,TOTAL 0.3 mg/dL (0.1-1.0); CARBON DIOXIDE 27 mmol/L (22-29); CHLORIDE 105 mmol/L (98-107); CREATININE 0.64 mg/dL (0.60-1.30); GLOMERULAR FILTR. RATE CALC > 60 mL/min (>60); POTASSIUM 3.6 mmol/L (3.5-5.1); SODIUM SERUM 136 mmol/L (136-145); TOTAL PROTEIN, SERUM 5.4 g/dL (6.4-8.2); UREA NITROGEN, BLOOD 9 mg/dL (7-18)
[2016-12-17] MEDS: HEPARIN SODIUM,PORCINE 5,000 UNITS/ML VIAL SQ SCH ×2 (08:00→15:46)
[2016-12-17] MEDS: VANCOMYCIN HCL 500 MG in DEXTROSE 5%-WATER 100 ML IV SCH (08:06)
[2016-12-17 08:45] LABS: HEMATOCRIT 27.2 % (41-53); HEMOGLOBIN 8.6 g/dL (13.5-17.5)
[2016-12-17] MEDS: ASPIRIN 81 MG EC TABLET PO SCH (09:32)
[2016-12-17] MEDS: TICAGRELOR 90 MG TABLET PO SCH ×2 (09:32→20:28)
[2016-12-17] MEDS: PANTOPRAZOLE SODIUM 40 MG/VIAL IVP SCH (09:32)
[2016-12-17] MEDS: DOCUSATE SODIUM 100 MG CAPSULE PO SCH ×2 (09:32→20:28)
[2016-12-17] MEDS: GABAPENTIN 300 MG CAPSULE NG SCH ×4 (09:32→20:28)
[2016-12-17] MEDS: INSULIN REGULAR, HUMAN 100 UNITS/ML SQ PRN ×3 (12:06→20:38)
[2016-12-17] MEDS ORDERED: VANCOMYCIN HCL 750 MG in DEXTROSE 5%-WATER 150 ML IV SCH (14:00)
[2016-12-17] MEDS: INSULIN DETEMIR 100 UNITS/ML SQ SCH (20:38)
[2016-12-18] MEDS: HEPARIN SODIUM,PORCINE 5,000 UNITS/ML VIAL SQ SCH ×3 (00:33→15:55)
[2016-12-18 00:52] LABS: GLUCOSE COMMENT 1 Received Meds; GLUCOSE,POINT OF CARE 210 MG/DL (70-110)
[2016-12-18 04:05] VITALS: BP 133/71
[2016-12-18] MEDS: INSULIN REGULAR, HUMAN 100 UNITS/ML SQ PRN ×4 (06:02→20:45)
[2016-12-18 06:23] LABS: BASOPHILS % (AUTO) 0.3 % (0.0-2.0); EOSINOPHILS % (AUTO) 1.5 % (1.0-6.0); HEMATOCRIT 28.3 % (41-53); HEMOGLOBIN 8.9 g/dL (13.5-17.5); LYMPHOCYTES % (AUTO) 21.3 % (22.0-44.0); MEAN CORPUSCULAR HEMOGLOBIN 28.8 pg (26.0-34.0); MEAN CORPUSCULAR HGB CONC 31.5 G/dL (31.0-37.0); MEAN CORPUSCULAR VOLUME 91 fL (80-100); MONOCYTES # (AUTO) 0.8 K/uL (0.1-1.0); NEUTROPHILS # (AUTO) 6.4 K/uL (1.8-7.7); NEUTROPHILS % (AUTO) 67.9 % (40.0-70.0); PLATELET COUNT (AUTO) 581 K/uL (150-450); RED CELL DISTRIBUTION WIDTH 15.8 % (11.5-14.5); WHITE BLOOD COUNT (AUTO) 9.4 K/uL (4.5-11.0)
[2016-12-18 07:15] LABS: ALANINE AMINOTRANSFERASE 14 U/L (12-78); ALBUMIN 1.4 g/dL (3.4-5.0); ANION GAP 6 mmol/L (8-16); ASPARTATE AMINOTRANSFERASE 18 U/L (15-37); BILIRUBIN,TOTAL 0.3 mg/dL (0.1-1.0); CALCIUM, TOTAL 8.1 mg/dL (8.8-10.5); CARBON DIOXIDE 26 mmol/L (22-29); CHLORIDE 102 mmol/L (98-107); CREATININE 0.53 mg/dL (0.60-1.30); GLOMERULAR FILTR. RATE CALC > 60 mL/min (>60); POTASSIUM 3.7 mmol/L (3.5-5.1); SODIUM SERUM 134 mmol/L (136-145); TOTAL PROTEIN, SERUM 5.7 g/dL (6.4-8.2); UREA NITROGEN, BLOOD 8 mg/dL (7-18)
[2016-12-18 07:31] VITALS: BP 110/64
[2016-12-18 07:46] LABS: PROCALCITONIN (PCT) 0.52 ng/mL (<0.50)
[2016-12-18] MEDS: PANTOPRAZOLE SODIUM 40 MG/VIAL IVP SCH (08:01)
[2016-12-18] MEDS: TICAGRELOR 90 MG TABLET PO SCH ×2 (08:02→20:38)
[2016-12-18] MEDS: DOCUSATE SODIUM 100 MG CAPSULE PO SCH ×2 (08:02→20:38)
[2016-12-18] MEDS: ASPIRIN 81 MG EC TABLET PO SCH (08:02)
[2016-12-18] MEDS: GABAPENTIN 300 MG CAPSULE NG SCH ×4 (08:02→20:38)
[2016-12-18 11:45] VITALS: BP 134/55
[2016-12-18 13:52] LABS: GLUCOSE COMMENT 1 Received Meds; GLUCOSE,POINT OF CARE 211 MG/DL (70-110)
[2016-12-18] MEDS ORDERED: SODIUM CHLORIDE 0.9% 250 ML IV ONE (15:38)
[2016-12-18 16:09] VITALS: BP 128/72
[2016-12-18] MEDS: AMPICILLIN SODIUM/SULBACTAM NA 3 GM in SODIUM CHLORIDE 0.9% 100 ML IV SCH ×2 (16:33→21:02)
[2016-12-18 17:57] LABS: GLUCOSE COMMENT 1 Received Meds; GLUCOSE,POINT OF CARE 251 MG/DL (70-110)
[2016-12-18 19:24] VITALS: BP 129/71
[2016-12-18] MEDS: INSULIN DETEMIR 100 UNITS/ML SQ SCH (20:44)
[2016-12-18 23:26] VITALS: BP 135/78
[2016-12-19] MEDS: HEPARIN SODIUM,PORCINE 5,000 UNITS/ML VIAL SQ SCH ×3 (00:31→15:36)
[2016-12-19 01:02] LABS: GLUCOSE,POINT OF CARE 194 MG/DL (70-110)
[2016-12-19] MEDS: AMPICILLIN SODIUM/SULBACTAM NA 3 GM in SODIUM CHLORIDE 0.9% 100 ML IV SCH ×3 (03:03→15:36)
[2016-12-19 04:12] VITALS: BP 136/68
[2016-12-19] MEDS: INSULIN REGULAR, HUMAN 100 UNITS/ML SQ PRN ×3 (05:50→17:50)
[2016-12-19 06:44] LABS: BASOPHILS % (AUTO) 0.7 % (0.0-2.0); EOSINOPHILS % (AUTO) 3.2 % (1.0-6.0); HEMATOCRIT 28.9 % (41-53); HEMOGLOBIN 9.3 g/dL (13.5-17.5); LYMPHOCYTES # (AUTO) 2.3 K/uL (1.0-4.8); LYMPHOCYTES % (AUTO) 29.2 % (22.0-44.0); MEAN CORPUSCULAR VOLUME 91 fL (80-100); MONOCYTES # (AUTO) 0.8 K/uL (0.1-1.0); MONOCYTES % (AUTO) 10.8 % (2.0-9.0); NEUTROPHILS # (AUTO) 4.3 K/uL (1.8-7.7); NEUTROPHILS % (AUTO) 56.1 % (40.0-70.0); PLATELET COUNT (AUTO) 644 K/uL (150-450); RED BLOOD CELL COUNT(AUTO) 3.19 MIL/uL (4.50-5.90); WHITE BLOOD COUNT (AUTO) 7.7 K/uL (4.5-11.0)
[2016-12-19 06:52] LABS: GLUCOSE,POINT OF CARE 116 MG/DL (70-110)
[2016-12-19 07:13] LABS: ALANINE AMINOTRANSFERASE 15 U/L (12-78); ALBUMIN 1.5 g/dL (3.4-5.0); ANION GAP 5 mmol/L (8-16); ASPARTATE AMINOTRANSFERASE 17 U/L (15-37); BILIRUBIN,TOTAL 0.2 mg/dL (0.1-1.0); CALCIUM, TOTAL 8.2 mg/dL (8.8-10.5); CARBON DIOXIDE 28 mmol/L (22-29); CHLORIDE 104 mmol/L (98-107); CREATININE 0.54 mg/dL (0.60-1.30); GLOMERULAR FILTR. RATE CALC > 60 mL/min (>60); POTASSIUM 3.8 mmol/L (3.5-5.1); SODIUM SERUM 137 mmol/L (136-145); TOTAL PROTEIN, SERUM 5.9 g/dL (6.4-8.2); UREA NITROGEN, BLOOD 7 mg/dL (7-18)
[2016-12-19 07:17] LABS: GLUCOSE COMMENT 1 Received Meds; GLUCOSE,POINT OF CARE 168 MG/DL (70-110)
[2016-12-19 07:58] VITALS: BP 132/75
[2016-12-19] MEDS: GABAPENTIN 300 MG CAPSULE NG SCH ×3 (08:10→15:37)
[2016-12-19] MEDS: TICAGRELOR 90 MG TABLET PO SCH (08:10)
[2016-12-19] MEDS: PANTOPRAZOLE SODIUM 40 MG/VIAL IVP SCH (08:10)
[2016-12-19] MEDS: DOCUSATE SODIUM 100 MG CAPSULE PO SCH (08:10)
[2016-12-19] MEDS: ASPIRIN 81 MG EC TABLET PO SCH (08:10)
[2016-12-19 10:07] LABS: GLUCOSE COMMENT 1 Received Meds; GLUCOSE,POINT OF CARE 200 MG/DL (70-110)
[2016-12-19 11:15] VITALS: BP 124/66
[2016-12-19 12:32] LABS: GLUCOSE COMMENT 1 Received Meds; GLUCOSE,POINT OF CARE 245 MG/DL (70-110)
[2016-12-19] MEDS ORDERED: GABA-531 NG (14:42)
[2016-12-19] MEDS ORDERED: DSS100 NG (14:42)
[2016-12-19] MEDS ORDERED: INSU100V12 SQ (14:44)
[2016-12-19] MEDS ORDERED: AUD NEB (14:45)
[2016-12-19] MEDS ORDERED: INSREG SQ (14:47)
[2016-12-19] MEDS ORDERED: IPRNEB NEB (14:48)
[2016-12-19] MEDS ORDERED: MOM30 NG (14:49)
[2016-12-19] MEDS ORDERED: ONDA4 NG (14:50)
[2016-12-19] MEDS ORDERED: AMOX1TAB16 NG (14:51)
[2016-12-19 16:05] VITALS: BP 142/77
[2016-12-19 19:47] LABS: GLUCOSE COMMENT 1 Received Meds; GLUCOSE,POINT OF CARE 260 MG/DL (70-110)
[2016-12-19 20:52] LABS: GLUCOSE COMMENT 1 Received Meds; GLUCOSE,POINT OF CARE 212 MG/DL (70-110)
[2016-12-20 06:22] LABS: GLUCOSE COMMENT 1 Received Meds; GLUCOSE,POINT OF CARE 184 MG/DL (70-110)
== END 2016-12-19 18:40 | DRG 871 ==
LOC: EMS 12:02 → 5N 15:52
PROVIDERS: ADMIT Hospitalist; ATTEND Hospitalist
DX: A41.9 Sepsis, unspecified organism (principal); E43 Unspecified severe protein-calorie malnutrition; J15.9 Unspecified bacterial pneumonia; E87.1 Hypo-osmolality and hyponatremia; N39.0 Urinary tract infection, site not specified; E11.9 Type 2 diabetes mellitus without complications; I10 Essential (primary) hypertension; D64.9 Anemia, unspecified; D69.6 Thrombocytopenia, unspecified; D75.89 Other specified diseases of blood and blood-forming organs; I50.9 Heart failure, unspecified; I11.0 Hypertensive heart disease with heart failure; I25.10 Atherosclerotic heart disease of native coronary artery without angina pectoris; J84.10 Pulmonary fibrosis, unspecified; Z66 Do not resuscitate; R13.10 Dysphagia, unspecified; Z95.5 Presence of coronary angioplasty implant and graft; I25.2 Old myocardial infarction; Z86.73 Personal history of transient ischemic attack (TIA), and cerebral infarction without residual deficits; Z79.82 Long term (current) use of aspirin; Z79.899 Other long term (current) drug therapy; Z79.4 Long term (current) use of insulin; Z87.01 Personal history of pneumonia (recurrent); Z74.01 Bed confinement status
CPT/HCPCS: 51701; 70450; 82962; 83605; 84145; 85014; 85018; 87040; 87081; 87086; 93005; 96361; 96365; 96375; 99285; C9113; J0131; J0295; J0696; J1644; J2543; J3370; J7030; J7050; J7060